=== PATIENT | male | born 1995 | race Caucasian/White ===

== ENCOUNTER 2017-01-23 16:44 | Emergency (ER) | payer OTHER ==
[2017-01-23 16:50] VITALS: TEMP 97.9
[2017-01-23] MEDS ORDERED: fentaNYL 100 MCG/2 ML INJ IVP ONE (16:56)
--- NOTE | 2017-01-23 16:56 | EDPHY ---
H & P Stated Complaint: l shoulder inj/has had 15 l shoulder dislocations HPI/ROS: Chief complaint: Left shoulder injury History of present illness: This is a 21-year-old male who reports a history of recurrent left shoulder dislocations who presents to the emergency department concerned he has dislocated it again. Patient's paddle boarding on a local [place] when his possible or flip and twisted his shoulder. He felt it dislocated that time. Since then he has had pain, worse with movement. Denies other associated signs or symptoms including no open wounds, no abnormal coolness or paresthesias in the left arm. Again he reports at least 14 dislocations of the shoulder. However he did have surgery approximately 5 years ago in [place] and has not had recurrent since the surgery until today. Review of systems: A 10 point review of systems was obtained and other than described above was negative - Personal History Current Tetanus/Diphtheria Vaccine: Yes - Medical/Surgical History Hx Asthma: No Hx Chronic Respiratory Disease: No Hx Diabetes: No Hx Cardiac Disease: No Hx Renal Disease: No Hx Cirrhosis: No Hx Alcoholism: No Hx HIV/AIDS: No Hx Splenectomy or Spleen Trauma: No Other PMH: l shoulder dislocations and surgery - Social History Smoking Status: Never smoked - Physical Exam Exam: General: Alert, nontoxic Skin: No open wounds to the left upper extremity Musculoskeletal: Obvious deformity of the left shoulder. He cannot move it secondary to pain. The rest of the left upper extremity is nontender to palpation. Vascular: Radial pulses 2+ bilaterally. Capillary refill brisk in the left hand. Neurologic: Sensation intact throughout the left upper extremity. Constitutional: Initial Vital Signs Temperature (C) 36.6 C 01/23/17 16:47 Heart Rate 65 01/23/17 16:47 Respiratory Rate 17 01/23/17 16:47 Blood Pressure 142/95 H 01/23/17 16:47 O2 Sat (%) 97 01/23/17 16:47 O2 Delivery Mode Room Air Allergies/Adverse Reactions: No Known Allergies Allergy (Unverified 01/23/17 16:47) Home Medications: Medication Instructions Recorded NK [No Known Home Meds] 01/23/17 Medical Decision Making - Diagnostics Imaging Results: Imaging Impressions Shoulder X-Ray 01/23/17 16:52 Impression: 1. Anterior dislocation left humeral head.. Shoulder X-Ray 01/23/17 17:20 Impression: Good position left humeral head postreduction. No fracture seen. Imaging: I viewed and interpreted images myself Procedures: Procedure: Dislocation reduction. The dislocation of the left shoulder was reduced using massage and gentle traction technique without complications. Post reduction the patient's neurovascular exam is normal. Post reduction x-ray demonstrates reduction of the joint to the anatomic position. The procedure was performed by myself. ED Course/Re-evaluation: Patient seen under the supervision of my secondary supervising physician Dr. Mellissa Lopez. Patient presents to the emergency department for left shoulder dislocation. His left arm does appear neurovascularly intact. Shoulder is reduced. He is placed in a splint. He remains neurovascularly intact. X-ray show good reduction. He will be discharged. Home care is discussed. He is asked to follow up with his orthopedic doctor in [place] for further evaluation and care. Return precautions are given. Differential Diagnosis: Included but not limited to dislocation, fracture, sprain or strain, contusion - Data Points Medications Given: Discontinued Medications Fentanyl (Sublimaze) 100 mcg IVP EDNOW ONE Stop: 01/23/17 16:57 Last Admin: 01/23/17 17:02 Dose: 100 mcg Departure - Departure Disposition: Home, Routine, Self-Care Clinical Impression: Shoulder dislocation Qualifiers: Encounter type: initial encounter Laterality: left Qualified Code(s): S43.005A - Unspecified dislocation of left shoulder joint, initial encounter Condition: Good Instructions: Shoulder Dislocation (ED) Additional Instructions: Follow-up with orthopedics for continued evaluation and care this week Use ibuprofen 600 mg 3 times a day for the next 2-3 days for for pain Ice the injury, 20 minutes on, 3 times daily for the next 3 days If symptoms worsen or new symptoms develop return to the emergency room for recheck Referrals: KELLY AIKEN [Other] - As per Instructions Rhona Askew MD [Medical Doctor] - As per Instructions
[2017-01-23] MEDS ORDERED: IBUPROFEN 600 MG TAB PO ONE (17:27)
[2017-01-23 18:09] VITALS: BP 128/78; PULSE 80; RESP 16; O2SAT 98
== END 2017-01-23 18:07 | disposition home or self-care (01) ==
PROC: 0RSKXZZ Reposition Left Shoulder Joint, External Approach (ICD-10-PCS; principal; 2017-01-23)
DX: S43.015A Anterior dislocation of left humerus, initial encounter (principal); X50.1XXA Overexertion from prolonged static or awkward postures, initial encounter; Y92.828 Other wilderness area as the place of occurrence of the external cause; Y99.8 Other external cause status; Y93.89 Activity, other specified
CPT/HCPCS: 96374; J3010